=== PATIENT | female | born 1965 | race Hispanic/Latino ===

== ENCOUNTER 2019-06-27 01:42 | Emergency (ER) | payer SELFPAY ==
[2019-06-27] MEDS ORDERED: ALBUTEROL SULFATE 0.083% 2.5 MG/3 ML INH IH ONE (02:08)
[2019-06-27 02:20] LABS: BASOPHILS % (AUTO) 0.7 % (0.0-5.0); EOSINOPHILS % (AUTO) 3.9 % (0.0-8.0); HEMATOCRIT 39.4 % (36-48); MEAN CORPUSCULAR HEMOGLOBIN 32.9 pg (27.0-33.0); MEAN CORPUSCULAR HGB CONC 34.3 g/dL (32.0-36.0); MEAN CORPUSCULAR VOLUME 95.9 fL (79-99); MONOCYTES % (AUTO) 8.6 % (3.0-13.0); NEUTROPHILS % (AUTO) 46.8 % (40.0-77.0); PLATELET COUNT (AUTO) 231 K/uL (130-400); RED BLOOD CELL COUNT(AUTO) 4.11 MIL/uL (4.00-5.50); RED CELL DISTRIBUTION WIDTH 13.5 % (11.0-15.5); WHITE BLOOD COUNT (AUTO) 6.5 K/uL (4.8-10.8)
[2019-06-27 02:21] LABS: APPEARANCE,URINE Cloudy (CLEAR); BILIRUBIN,URINE Negative (NEGATIVE); COLOR,URINE Yellow (YELLOW); GLUCOSE, URINE (UA) Negative (NEGATIVE); KETONES,URINE Negative (NEGATIVE); LEUKOCYTE ESTERASE ,URINE Trace (NEGATIVE); NITRATE,URINE Negative (NEGATIVE); OCCULT BLOOD,URINE Negative (NEGATIVE); PH,URINE 6.5 (5.0-8.0); PROTEIN,URINE Negative (NEGATIVE)
[2019-06-27 02:29] LABS: CREATININE 0.9 mg/dL (0.5-1.5); POTASSIUM 4.1 mmol/L (3.5-5.1)
[2019-06-27 02:33] LABS: ALBUMIN 3.6 g/dL (3.5-5.0); BILIRUBIN,TOTAL 0.4 mg/dL (0.2-1.0); INR 0.91 (0.85-1.15); PARTIAL THROMBOPLASTIN TIME 24.3 SEC (26.3-35.5); PROTHROMBIN TIME 9.6 SEC (9.6-11.6); TOTAL PROTEIN, SERUM 7.1 g/dL (6.0-8.3)
[2019-06-27 02:47] LABS: AMORPHOUS SEDIMENT,UR Moderate /LPF (None Seen); BACTERIA,URINE Rare /HPF (None Seen); MUCUS,URINE Moderate LPF (None Seen); RBC,URINE 0-1 /HPF (0-1); SQUAMOUS EPITHELIAL CELL,UR Many /HPF (0-2); WBC,URINE 0-1 /HPF (0-1)
[2019-06-27] MEDS ORDERED: METHYLPREDNISOLONE SOD SUCC 125MG/2ML VIAL ONE (03:01)
== END 2019-06-27 03:36 | disposition home or self-care (01) ==
LOC: EDH 01:42
DX: J45.31 Mild persistent asthma with (acute) exacerbation (principal); Z79.899 Other long term (current) drug therapy; Z98.51 Tubal ligation status; Z87.891 Personal history of nicotine dependence
CPT/HCPCS: 36415; 71045; 80053; 81001; 82550; 84484; 85025; 85610; 85730; 87804 ×2; 93005; 94640; 96374; 99285; J2930

== ENCOUNTER 2019-09-19 21:41 | Emergency (ER) | payer OTHER | END 2019-09-19 23:02 | disposition home or self-care (01) | LOC: EDH 21:41 | DX: J11.1 Influenza due to unidentified influenza virus with other respiratory manifestations (principal); J45.909 Unspecified asthma, uncomplicated; Z79.899 Other long term (current) drug therapy | CPT/HCPCS: 87804; 87880 ==

== ENCOUNTER 2021-12-14 12:08 | Emergency (ER) | payer OTHER ==
[~2021-12-14] VITALS: Ht 152.4 cm; Wt 74.8 kg
[2021-12-14 12:27] LABS: BASOPHILS % (AUTO) 0.6 % (0.0-5.0); HEMATOCRIT 41.3 % (36-48); LYMPHOCYTES % (AUTO) 30.3 % (21.0-51.0); MEAN CORPUSCULAR HEMOGLOBIN 30.1 pg (27.0-33.0); MEAN CORPUSCULAR HGB CONC 32.4 g/dL (32.0-36.0); MEAN CORPUSCULAR VOLUME 92.8 fL (79-99); MONOCYTES % (AUTO) 8.6 % (3.0-13.0); NEUTROPHILS % (AUTO) 56.2 % (40.0-77.0); PLATELET COUNT (AUTO) 262 K/uL (130-400); RED BLOOD CELL COUNT(AUTO) 4.45 MIL/uL (4.00-5.50); RED CELL DISTRIBUTION WIDTH 12.6 % (11.0-15.5); WHITE BLOOD COUNT (AUTO) 6.4 K/uL (4.8-10.8)
[2021-12-14 12:37] LABS: CREATININE 0.7 mg/dL (0.5-1.5); POTASSIUM 4.2 mmol/L (3.5-5.1)
[2021-12-14 12:41] LABS: ALBUMIN 3.9 g/dL (3.5-5.0); BILIRUBIN,TOTAL 0.6 mg/dL (0.2-1.0); TOTAL PROTEIN, SERUM 7.8 g/dL (6.0-8.3)
[2021-12-14 12:52] LABS: APPEARANCE,URINE Clear (CLEAR); BILIRUBIN,URINE Negative (NEGATIVE); COLOR,URINE Yellow (YELLOW); GLUCOSE, URINE (UA) Negative (NEGATIVE); KETONES,URINE Negative (NEGATIVE); LEUKOCYTE ESTERASE ,URINE Trace (NEGATIVE); NITRATE,URINE Negative (NEGATIVE); OCCULT BLOOD,URINE Negative (NEGATIVE); PH,URINE 6.5 (5.0-8.0); PROTEIN,URINE Negative (NEGATIVE); UROBILINOGEN,URINE 0.2 mg/dL (0.2-1.0)
[2021-12-14] MEDS ORDERED: LORAZEPAM 1 MG TABLET PO ONE (13:00)
[2021-12-14] MEDS ORDERED: LORAZEPAM 1 MG TABLET ONE (13:01)
[2021-12-14 13:10] LABS: RBC,URINE None Seen /HPF (0-1); WBC,URINE 0-1 /HPF (0-1)
[2021-12-14 13:11] LABS: BACTERIA,URINE None Seen /HPF (None Seen); MUCUS,URINE Rare LPF (None Seen); SQUAMOUS EPITHELIAL CELL,UR 0-2 /HPF (0-2)
[2021-12-14] MEDS ORDERED: HYDR-3421 PO (15:57)
[2021-12-14 16:05] VITALS: BP 124/76
== END 2021-12-14 16:07 | disposition home or self-care (01) ==
LOC: EDH 12:08
DX: F41.9 Anxiety disorder, unspecified (principal); R07.89 Other chest pain
CPT/HCPCS: 36415; 71045; 80053; 81001; 84484; 85025; 93005

== ENCOUNTER 2024-05-07 10:11 | Emergency (ER) | payer BC ==
[~2024-05-07] VITALS: Ht 152.4 cm; Wt 70.3 kg
[2024-05-07 10:11] VITALS: TEMP 98
[~2024-05-07 10:11] MED LIST: HYDR-3421 PO; PANT40TA55 PO
[2024-05-07 10:21] VITALS: BP 122/60; PULSE 68; RESP 16; O2SAT 98
--- NOTE | 2024-05-07 10:21 | ERN ---
ED Note History of Present Illness Stated Complaint: WRIST PAIN Chief Complaint: Wrist Pain/Injury Time Seen by MD: 10:12 Dictation: PATIENT IS A 59-YEAR-OLD FEMALE HERE WITH COMPLAINTS OF NON TRAUMA RIGHT WRIST PAIN SHE HAS HAD FOR ONE WEEK. 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 SHE STATES SHE CONTINUED TO WORK THROUGHOUT THE WEEK DESPITE THE PAIN THAT DID NOT GO SEE HER PRIMARY CARE DOCTOR. SHE TOOK IBUPROFEN YESTERDAY FOR PAIN,, DENIES HISTORY OF GOUT. NO FEVER NO CHILLS Allergies: Coded Allergies: No Known Drug Allergies (Unverified Allergy, Unknown, 09/19/19) Home Meds Active Scripts Pantoprazole Sodium (Protonix) 40 Mg Ectab, 40 MG PO DAILY for 30 Days, #30 TAB.EC Prov:KENYON MEJIA MD 04/17/24 Hydroxyzine HCl (Hydroxyzine HCl) 25 Mg Tablet, 25 MG PO TID, #30 TAB Prov:RITESH BUCK 12/14/21 Past Medical History Past Medical History: No Pertinent History Surgical History: BTL PSYCH History: no pertinent psych hx Family History: Negative Social History: Negative History: Not Applicable RN Note Reviewed/Agreed w/PFSH: Yes Review of System Dictation CONSTITUTIONAL: NEGATIVE EXCEPT FOR HPI HEAD/FACE: NEGATIVE EXCEPT FOR HPI EENT: NEGATIVE EXCEPT FOR HPI RESPIRATORY: NEGATIVE EXCEPT FOR HPI GASTROINTESTINAL/ABDOMINAL: NEGATIVE EXCEPT FOR HPI GENITOURINARY: NEGATIVE EXCEPT FOR HPI MUSCULOSKELETAL: NEGATIVE EXCEPT FOR HPI WRIST PAIN- INTEGUMENTARY: NEGATIVE EXCEPT FOR HPI NEUROLOGICAL/PSYCH: NEGATIVE EXCEPT FOR HPI HEMATOLOGIC/LYMPHATIC: NEGATIVE EXCEPT FOR HPI ALL SYSTEMS NEGATIVE, EXCEPT NOTED ABOVE. 13 POINT REVIEW OF SYSTEMS ASSESSED AND ALL NEGATIVE EXCEPT FOR ABOVE. Initial Vital Sign VS Vital Signs Date Time Temp Pulse Resp B/P (MAP) Pulse Ox O2 Delivery O2 Flow Rate FiO2 05/07/24 10:11 98.1 70 16 122/58 98 Room Air 0 05/07/24 10:21 21 Physical Exam Dictation VITAL SIGNS REVIEWED GENERAL APPEARANCE: ALERT, ORIENTED X 3, N MODERATE ACUTE DISTRESS, WELL DEVELOPED, NOURISHED. HEAD AND FACE: NON-TRAUMATIC. EYES: PERRL, PINK CONJUNCTIVAS, EYELID NO TRAUMA, ANTERIOR CHAMBER WITH ARCUS SENILIS. EARS: PINNAS INTACT AND NO SIGNS OF TRAUMA OR ERYTHEMA EAR CANALS CLEAR AND NO DISCHARGE TM NO ERYTHEMA NOSE: NO DISCHARGE, NO BLEEDING. OROPHARYNX: MOUTH NORMAL, TONGUE PINK, PHARYNX CLEAR,NO ERYTHEMA, TONSILS NO EXUDATES, NO ABSCESSES NOTED, MUCOUS MEMBRANE MOIST NECK: SUPPLE, NON-TENDER, NO THYROMEGALY, NO MASSES, NO JVD, NO BRUITS BREAST:DEFERRED CHEST:NO TENDERNESS, NO CREPITUS, NO PARADOXICAL MOVEMENT, NO RETRACTIONS LUNGS:CLEAR, WELL-VENTILATED, SYMMETRIC, NO RALES, NO WHEEZING, NO RHONCHI, NO STRIDOR, GOOD BREATH SOUNDS BILATERALLY HEART: REGULAR RATE, REGULAR RHYTHM, NO MURMUR, NO GALLOPS VASCULAR: NO PERIPHERAL EDEMA, ABDOMEN: SOFT, POSITIVE BOWEL SOUNDS, NONDISTENDED, NO GUARDING, NONTENDER, NO REBOUND, NO MASSES NO HEPATOMEGALY, NO SPLENOMEGALY, NO PYLE'S SIGN, NO HERNIAS. RECTAL: DEFERRED GENITAL: DEFERRED NEUROLOGICAL: NORMAL SPEECH, MOTOR FUNCTION INTACT, SENSORY FUNCTION INTACT MUSCULOSKELETAL: NECK NONTENDER, FULL RANGE OF MOTION, BACK NONTENDER, FULL RANGE OF MOTION, EXTREMITIES: FULL RANGE OF MOTION RIGHT WRIST HOWEVER TENDER DIFFUSELY. NO ERYTHEMA NO SWELLING SKIN: COLOR PINK, DRY, NO TURGOR, NO RASH, NO LACERATIONS, NO ABRASIONS, NO CONTUSIONS. LYMPHATIC: DEFERRED Results (Laboratory/Radiology) Laboratory/Radiology Laboratory Tests Test 05/07/24 10:36 Uric Acid 5.5 mg/dL (2.6-7.2) RIGHT WRIST X-RAY NEGATIVE Labs Reviewed?: Yes ED Course ED Course Orders Procedure Category Date Status Time Wrist Comp 3+Vws Rt RAD 05/07/24 Taken 10:17 Uric Acid LAB 05/07/24 Complete 10:17 Volar Splint [email or web address] 05/07/24 In Process 10:17 Ketorolac 60mg/2ml PHA 05/07/24 Complete (Toradol 60mg/2ml) 10:30 Current Medications Medications (Trade) Dose Ordered Sig/Nixon Route PRN Reason Start Time Stop Time Status Last Admin Dose Admin Ketorolac Tromethamine (toRADol 60MG/ 2ML) 60 mg ONCE ONCE IM 05/07/24 10:30 05/07/24 10:31 DC 05/07/24 10:25 Vital Signs Date Time Temp Pulse Resp B/P (MAP) Pulse Ox O2 Delivery O2 Flow Rate FiO2 05/07/24 10:21 68 16 122/60 98 Room Air* 0 21 05/07/24 10:11 98.1 70 16 122/58 98 Room Air 0 1058, VOLAR SPLINT PLACED BY TECH, DISTAL NEUROVASCULAR CMS INTACT POST PLACEMENT. Medical Decision Making MDM MEDICAL DECISION-MAKING BASED ON URIC ACID LEVEL AND WRIST X-RAY FOR NON TRAUMA RIGHT WRIST PAIN. URIC ACID NEGATIVE X-RAY NEGATIVE PATIENT DISCHARGED HOME WITH RIGHT WRIST SPRAIN AND SPLINT. TOLD HER SEE YOUR PRIMARY CARE DOCTOR IN 1-2 DAYS AND NO WORK UNTIL CLEARED DX & DISP Disposition: Discharge Departure Impression: Primary Impression: Right wrist sprain Condition: Stable Scripts Ibuprofen (Ibuprofen 800 mg Tab) 800 Mg Tab 800 MG PO Q6H PRN for PAIN, #30 TAB Prov: LORENZO LOPEZ NP 05/07/24 Additional Instructions: FOLLOW-UP WITH PRIMARY CARE PROVIDER IN 1 TO 2 DAYS. TAKE MEDICATIONS DIRECTED HERE IN THE EMERGENCY ROOM. OKAY TO CONTINUE HOME MEDICATIONS UNLESS OTHERWISE DISCUSSED DURING YOUR VISIT IN THE EMERGENCY ROOM TODAY. RETURN TO YOUR NEAREST EMERGENCY ROOM IF SYMPTOMS WORSEN OR IF THERE IS NO IMPROVEMENT. CALL 911 IF YOU NEED IMMEDIATE ASSISTANCE. TAKE TYLENOL OR MOTRIN [id number] NEEDED AND IF NO CONTRAINDICATIONS ARE PRESENT. INCREASE ORAL HYDRATION. A WOUND CULTURE OR URINE CULTURE WAS ORDERED HERE IN THE EMERGENCY ROOM DEPARTMENT PLEASE FOLLOW-UP WITH PRIMARY CARE PROVIDER AND ADVISE THEM TO GET REPEAT PORTS FROM OUR FACILITY. IF YOU HAD ANY RICHARD WRAP/SPLINTS THAT WERE APPLIED HERE, PLEASE DO NOT REMOVE THEM UNTIL YOU SEE YOUR PRIMARY CARE OR SPECIALTY. SPLINT AND NO WEIGHT-BEARING TO RIGHT WRIST UNTIL CLEARED BY ORTHOPEDIC SURGEON OR YOUR DOCTOR. CALL ORTHOPEDIC SURGEON NEEDED TO FOLLOW UP. IBUPROFEN DIRECTED FOR PAIN WITH FOOD Referrals: RAJ WAYNE DO (PCP) RENETTA MEJIA MD Time of Disposition: 10:57 I have reviewed the case, and I agree with, Diagnosis and Plan LORENZO LOPEZ NP May 07, 2024 10:20
[2024-05-07] MEDS: ketOROlac 60 MG VIAL (30MG/ML) IM ONE (10:25)
[2024-05-07] MEDS ORDERED: IBUP-2077 PO (10:58)
--- NOTE | 2024-05-07 11:31 | HMCIMG ---
RIGHT WRIST RADIOGRAPHS - 3 VIEWS INDICATION: Pain COMPARISON: None FINDINGS: AP, lateral, and oblique views. No evidence for acute fracture or subluxation. Mild first carpometacarpal joint osteoarthropathy. Scaphoid bone is intact. Ulnar variance is within normal limits. Carpal alignment is well maintained. No radiopaque foreign body noted. IMPRESSION: No evidence for fracture or dislocation.
== END 2024-05-07 11:02 | disposition home or self-care (01) ==
LOC: EDH 10:11
DX: S63.591A Other specified sprain of right wrist, initial encounter (principal); Z79.899 Other long term (current) drug therapy; Z98.51 Tubal ligation status; X50.9XXA Other and unspecified overexertion or strenuous movements or postures, initial encounter; Y93.89 Activity, other specified; Y92.89 Other specified places as the place of occurrence of the external cause; Y99.8 Other external cause status
CPT/HCPCS: 99284; 84550; 36415; 73110; 29125; 96372; J1885

== ENCOUNTER 2025-01-06 17:08 | Emergency (ER) | payer BC ==
[~2025-01-06] VITALS: Ht 154.9 cm; Wt 69.4 kg
[~2025-01-06 17:08] MED LIST changes: +IBUP-2077 PO
--- NOTE | 2025-01-06 17:27 | ERN ---
General Chief Complaint: Hand Problem/Injury Stated Complaint: SENT BY Time Seen by MD: 17:09 Time Seen by Midlevel: 17:09 Source: patient History of Present Illness Initial Comments This is a 60-year-old female presenting to the emergency department for evaluation of a right wrist injury. The patient reports sustaining a mechanical ground level fall three days ago after she accidentally tripped over a bag that was on the floor. She reports landing with her right arm outstretched. She was seen by her primary care doctor today who performed x-rays and told her her right thumb might be dislocated so she sent her to the ER for further evaluation. Allergies: Coded Allergies: No Known Drug Allergies (Unverified Allergy, Unknown, 09/19/19) Home Meds Active Scripts Ibuprofen (Ibuprofen 800 mg Tab) 800 Mg Tab, 800 MG PO Q6H PRN for PAIN, #30 TAB Prov:LORENZO LOPEZ NP 05/07/24 Pantoprazole Sodium (Protonix) 40 Mg Ectab, 40 MG PO DAILY for 30 Days, #30 TAB.EC Prov:KENYON MEJIA MD 04/17/24 Hydroxyzine HCl (Hydroxyzine HCl) 25 Mg Tablet, 25 MG PO TID, #30 TAB Prov:RITESH BUCK 12/14/21 Past Medical History Past Medical History: Other Medical History Other: OSTEOPOROSIS Past Surgical History: None Family History Family History: Negative Social History Social History: Negative Female( History) History: Not Applicable ROS Dictation CONSTITUTIONAL: Negative except for HPI HEAD/FACE: Negative except for HPI EENT: Negative except for HPI RESPIRATORY: Negative except for HPI GASTROINTESTINAL/ABDOMINAL: Negative except for HPI GENITOURINARY: Negative except for HPI MUSCULOSKELETAL: Negative except for HPI INTEGUMENTARY: Negative except for HPI NEUROLOGICAL/PSYCH: Negative except for HPI HEMATOLOGIC/LYMPHATIC: Negative except for HPI All Systems Negative, Except as noted above. 13 point review of systems assessed and all negative except for above. Physical Exam Physical Exam Dictation Vital Signs reviewed General Appearance: Alert, oriented x 3, no acute distress, well developed, nourished. Head and Face: non-traumatic. Eyes: PERRL, pink conjunctivas, eyelid no trauma, anterior chamber with arcus senilis. Ears: Pinnas intact and no signs of trauma or erythema ear canals clear and no discharge TM no erythema Nose: No discharge, no bleeding. Oropharynx: Mouth normal, tongue pink, pharynx clear,no erythema, tonsils no exudates, no abscesses noted, mucous membrane moist Neck: Supple, non-tender, no thyromegaly, no masses, no JVD, no bruits Breast:Deferred Chest:No tenderness, no crepitus, no paradoxical movement, no retractions Lungs:Clear, well-ventilated, symmetric, no rales, no wheezing, no rhonchi, no stridor, good breath sounds bilaterally Heart: Regular rate, regular rhythm, no murmur, no gallops Vascular: no peripheral edema, Abdomen: Soft, positive bowel sounds, nondistended, no guarding, nontender, no rebound, no masses no hepatomegaly, no splenomegaly, no Abernathy's sign, no hernias. Rectal: Deferred Genital: Deferred Neurological: Normal speech, motor function intact, sensory function intact Musculoskeletal: Neck nontender, full range of motion, back nontender, full range of motion, Extremities: nontender, full range of motion Skin: Color pink, dry, no turgor, no rash, no lacerations, no abrasions, no contusions. Lymphatic: Deferred MDM MDM: This is a 60-year-old female presenting to the emergency department for evaluation of a right wrist injury. The patient reports sustaining a mechanical ground level fall three days ago after she accidentally tripped over a bag that was on the floor. She reports landing with her right arm outstretched. She was seen by her primary care doctor today who performed x-rays and told her her right thumb might be dislocated so she sent her to the ER for further evaluation. On physical examination the patient is in no acute distress. There is some tenderness overlying the right lateral wrist however there was no obvious signs of deformity. There is some mild tenderness at the base of the right thumb. X- ray of the right wrist and right hand reveal Differential diagnosis: There are no social concerns with this patient. Prescription drug management Prescriptions will include: Medical management and examination interpretation discussions were had by me with other qualified healthcare professionals as indicated for the patient's care. ED Course Orders Procedure Category Date Status Time Wrist Comp 3+Vws Rt RAD 01/06/25 Resulted 17:25 Hand 3+Vws Rt RAD 01/06/25 Resulted 17:25 Vital Signs Date Time Temp Pulse Resp B/P (MAP) Pulse Ox O2 Delivery O2 Flow Rate FiO2 01/06/25 18:28 98.1 64 18 105/73 97 Room Air* 0 21 01/06/25 17:18 98.1 65 20 109/77 97 Room Air 0 [place] [id number] [address] IMAGING REPORT Signed PATIENT: NORTH SAMS MR#: [id number] : 1965 SEX: F AGE: 60 LOCATION: [facility] ORDER 24 STATUS: REG ER REPORT#: [id number] SERVICE 24 REASON: fall ORDERING PHYSICIAN: HUMERA YIP PROCEDURE: WRST 3V RT - WRIST COMP 3+VWS RT RIGHT WRIST RADIOGRAPHS - 3 VIEWS INDICATION: Pain COMPARISON: None FINDINGS: AP, lateral, and oblique views. No evidence for acute fracture or subluxation. Scaphoid bone is intact. Mild to moderate first carpometacarpal joint osteoarthropathy. Ulnar variance is within normal limits. Carpal alignment is well maintained. No radiopaque foreign body noted. IMPRESSION: No evidence for fracture or dislocation. DICTATED BY: KITA BERUMEN MD DATE: 01/06/251749 ELECTRONICALLY SIGNED BY: KITA BERUMEN MD DATE: 01/06/251752 [place] [id number] [address] IMAGING REPORT Signed PATIENT: NORTH SAMS MR#: [id number] : 1965 SEX: F AGE: 60 LOCATION: [facility] ORDER 24 STATUS: REG ER [facility] REPORT#: [id number] SERVICE 24 REASON: fall ORDERING PHYSICIAN: HUMERA YIP PROCEDURE: HAND 3V RT - HAND 3+VWS RT RIGHT HAND RADIOGRAPHS - 3 VIEWS INDICATION: Pain COMPARISON: None FINDINGS: AP, lateral, and oblique views. No acute fracture of subluxation identified. Scaphoid bone is intact. Mild to moderate first carpometacarpal joint osteoarthropathy. Carpal alignment and ulnar variance is within normal limits. No radiopaque foreign body noted. IMPRESSION: No evidence for fracture or subluxation. DICTATED BY: KITA BERUMEN MD DATE: 01/06/251748 ELECTRONICALLY SIGNED BY: KITA BERUMEN MD DATE: 01/06/251752 DX & DISP Disposition: Discharge Departure Impression: Primary Impression: Contusion of right wrist Additional Impression: Osteoarthritis of right wrist Condition: Stable Additional Instructions: Your wrist x-ray shows a slight irregularity at the base of the right thumb/2nd digit. The radiologist is calling this [id number] 1st carpometacarpal joint osteoarthropathy. However, given your recent history of trauma this could be a small fracture. We have placed you on a wrist immobilizer and you will need to follow up with orthopedic podiatrist outpatient for further evaluation. Referrals: RAJ WAYNE DO (PCP) Time of Disposition: 18:32 I have reviewed the case, and I agree with, Diagnosis and Plan I performed the substantive portion of the visit. I have reviewed and personally made and approve the management plan that is documented in the note by myself or the YEIMY. I acknowledge for responsibility for the patient's management plan. HUMERA YIP January 06, 2025 17:27
--- NOTE | 2025-01-06 17:53 | HMCIMG ---
RIGHT HAND RADIOGRAPHS - 3 VIEWS INDICATION: Pain COMPARISON: None FINDINGS: AP, lateral, and oblique views. No acute fracture of subluxation identified. Scaphoid bone is intact. Mild to moderate first carpometacarpal joint osteoarthropathy. Carpal alignment and ulnar variance is within normal limits. No radiopaque foreign body noted. IMPRESSION: No evidence for fracture or subluxation.
--- NOTE | 2025-01-06 17:53 | HMCIMG ---
RIGHT WRIST RADIOGRAPHS - 3 VIEWS INDICATION: Pain COMPARISON: None FINDINGS: AP, lateral, and oblique views. No evidence for acute fracture or subluxation. Scaphoid bone is intact. Mild to moderate first carpometacarpal joint osteoarthropathy. Ulnar variance is within normal limits. Carpal alignment is well maintained. No radiopaque foreign body noted. IMPRESSION: No evidence for fracture or dislocation.
[2025-01-06 18:28] VITALS: BP 105/73; PULSE 64; RESP 18; TEMP 98; O2SAT 97
[2025-01-06] MEDS: ketOROlac 30MG VIAL (30MG/ML) IM ONE (18:36)
== END 2025-01-06 18:45 | disposition home or self-care (01) ==
LOC: EDH 17:08
DX: S60.211A Contusion of right wrist, initial encounter (principal); M81.0 Age-related osteoporosis without current pathological fracture; Z79.899 Other long term (current) drug therapy; W01.0XXA Fall on same level from slipping, tripping and stumbling without subsequent striking against object, initial encounter; Y93.89 Activity, other specified; Y92.89 Other specified places as the place of occurrence of the external cause; Y99.8 Other external cause status
CPT/HCPCS: 99284; 73130; 73110; 96372; J1885